=== PATIENT | female | born 1960 | race Caucasian/White ===

== ENCOUNTER → 2018-01-15 | Outpatient (CLI) | payer OTHER ==
[~2018-01-15] MED LIST: CIPR500 PO; CITA20 PO; CRUTCH4 USE; CYCL10 PO; ESTROVEN; HYDACE5 PO; OXYACE5T PO; VENL75ER
== END | disposition home or self-care (01) ==
LOC: LAB 18:50 → LAB SHORT 18:50
DX: N39.0 Urinary tract infection, site not specified (principal)
CPT/HCPCS: 87086

== ENCOUNTER 2018-09-19 11:40 | Emergency (ER) | payer OTHER ==
[~2018-09-19] VITALS: Ht 162.6 cm; Wt 90.7 kg
[2018-09-19 12:57] LABS: Source, Urine Clean Catch
[2018-09-19 13:00] LABS: BASOPHILS ABSOLUTE AUTO 0.05 K/mm3 (0.00-0.23); BASOPHILS PERCENT AUTO 1 % (0-2); Bilirubin, Urine Neg (Neg); Blood, Urine 1+ (Neg); EOSINOPHILS ABSOLUTE AUTO 0.09 K/mm3 (0.00-0.68); EOSINOPHILS PERCENT AUTO 1 % (0-6); Glucose Qualitative, Urine Neg (Neg); Hematocrit 43.2 % (33.0-51.0); Hemoglobin 13.7 g/dL (11.5-16.0); IMMATURE GRAN ABSOLUTE AUTO 0.02 K/mm3 (0.00-0.10); IMMATURE GRAN PERCENT AUTO 0 % (0-1); Ketones, Urine 1+ (Neg); LYMPHOCYTES ABSOLUTE AUTO 2.61 K/mm3 (0.84-5.20); LYMPHOCYTES PERCENT AUTO 41 % (21-46); Leukocyte Esterase, Urine 1+ (Neg); MONOCYTES ABSOLUTE AUTO 0.51 K/mm3 (0.16-1.47); MONOCYTES PERCENT AUTO 8 % (4-13); Mean Corpuscular HGB 26.8 pg (26.0-34.0); Mean Corpuscular HGB Conc 31.7 g/dL (31.5-36.5); Mean Corpuscular Volume 85 fL (80-100); Mean Platelet Volume 9.5 fL (9.1-12.4); NEUTROPHILS ABSOLUTE AUTO 3.04 K/mm3 (1.96-9.15); NEUTROPHILS PERCENT AUTO 48 % (41-73); Nitrite, Urine Neg (Neg); Platelet Count 315 K/mm3 (150-400); Protein, Urine 1+ (Neg); RDW Coefficient Variation 13.4 % (11.7-14.2); RDW Standard Deviation 41.7 fL (35.1-46.3); Red Blood Cell Count 5.11 M/mm3 (3.80-5.20); Specific Gravity, Urine 1.025 (1.003-1.022); Urobilinogen, Urine NORM (Normal); White Blood Cell Count 6.32 K/mm3 (4.00-11.30)
[2018-09-19 13:11] LABS: Appearance, Urine Clear (Clear); Color, Urine Yellow (P-Yellow)
[2018-09-19 13:13] LABS: Bacteria Few /hpf; Squamous Epithelial Cells Few /hpf (Few)
[2018-09-19] MEDS ORDERED: Cymbalta30 MG PO (13:15)
[2018-09-19 13:32] LABS: Alanine Aminotransfer (ALT/SGP 17 U/L (12-78); Albumin, Blood 3.7 g/dL (3.4-5.0); Albumin/Globulin Ratio 0.9 (0.8-1.8); Alk Phos 68 U/L (50-136); Anion Gap 6 mmol/L (6-16); Aspartate Aminotrans (AST/SGOT 14 U/L (12-37); Bilirubin, Total 0.3 mg/dL (0.1-1.0); Blood Urea Nitrogen 16 mg/dL (8-24); Bun/Creatinine Ratio 25.2 (12.0-20.0); CO2, Blood 32 mmol/L (21-32); Calcium, Blood 9.6 mg/dL (8.5-10.1); Chloride, Blood 99 mmol/L (98-108); Creatinine, Blood 0.64 mg/dL (0.40-1.00); Globulin, Blood 4.1 g/dL (2.2-4.0); Glomerular Filtration Rate >60 (60-); Glucose, Blood 110 mg/dL (70-99); Potassium, Blood 4.2 mmol/L (3.5-5.5); Sodium, Blood 137 mmol/L (136-145); Total Protein, Blood 7.8 g/dL (6.4-8.2); Troponin I <0.015 ng/mL (0.000-0.040)
[2018-09-19] MEDS ORDERED: Motion Sickness25 M1 PO (15:01)
== END 2018-09-19 15:12 | disposition home or self-care (01) ==
LOC: ER 11:40
PROVIDERS: Physician Assistant
DX: H81.10 Benign paroxysmal vertigo, unspecified ear (principal); E11.9 Type 2 diabetes mellitus without complications; F41.9 Anxiety disorder, unspecified; Z87.891 Personal history of nicotine dependence
CPT/HCPCS: 36415; 71046; 80053; 81001; 84484; 85025; 87086; 93005; 93010; 99284-25

== ENCOUNTER → 2024-02-29 | Outpatient (CLI) | payer OTHER ==
[~2024-02-29] MED LIST changes: +Cymbalta30 MG PO; +Motion Sickness25 M1 PO
== END | disposition home or self-care (01) ==
LOC: LAB SHORT 18:59
DX: R30.0 Dysuria (principal); R35.0 Frequency of micturition; R31.9 Hematuria, unspecified
CPT/HCPCS: 87086